=== PATIENT | female | born 1950 | race Caucasian/White ===

== ENCOUNTER → 2019-06-20 | Day surgery (SDC) | payer BC, MEDICARE ==
[~2019-06-20] MED LIST: ACETAMINOPHEN 325 MG TABLET PO PRN; ALBUTEROL SULFATE 2.5 MG/3 ML NEBU. NEB PRN; ALOG25TA PO; ASPI325T8 PO; ATROPINE 0.5 MG/5 ML DISP.SYRIN. IV PRN; CARV25TA PO; CLON-276 PO; CRESTOR40 MG PO; DOCU-109 PO; ESCITALOPRAM OX10 MG PO; IV RINGERS SOLUTION,LACTATED 1,000 ML IV SCH; LISI-334 PO; MAGN200T7 PO; METF500T16 PO; MULT-658 PO; PANT40TA3 PO; PHENOL ORAL SPRAY 177ML BOTTLE. MM PRN; POTA20PA30 PO; PROPOFOL 40 ML IV ONE; SPIR25TA5 PO; diphenhydrAMINE 50 MG/ML VIAL IV PRN
[2019-06-20 12:33] VITALS: BP 118/62
--- NOTE | 2019-06-22 16:06 | PATHOLOGY ---
[facility] Accession Number: [id number] . 01 Material submitted: . PART A: small bowel - SMALL BOWEL BX PART B: stomach - GASTRIC BX . 01 Clinical history: . Dysphagia, change in bowel . 02 Diagnosis: A. Small bowel biopsy: - No significant pathologic abnormalities. . B. Gastric biopsies: - Chronic gastritis, mild. . (JPM:mml; 06/22/2019) [facility] 06/22/2019 0936 Local . 02 Comment: Sections of the small bowel biopsy reveal duodenal mucosa. Where best oriented, the mucosal villi show no sprue-like changes or significant inflammatory changes. . Sections of the gastric antral biopsy show congestion and mild chronic inflammation. A properly-controlled immunoperoxidase stain for Helicobacter is obtained and is negative for Helicobacter organisms. . Special stain (B1): Immunoperoxidase stain for Helicobacter . (JPM:mml; 06/22/2019) . 02 Electronically signed: . Walter Jiang MD, Pathologist NPI- [id number] . 01 Gross description: . A. Received in formalin labeled "Garrett, Faby, small bowel BX, rule out celiac," is a single segment of munguia soft tissue measuring 0.5 cm in maximum dimension. The specimen is entirely submitted in cassette A1. . B. Received in formalin labeled "Garrett, Faby, gastric BX, rule out H. pylori," are 2 segments of munguia soft tissue measuring 0.7 x 0.2 x 0.2 cm in aggregate dimensions and ranging from 0.3 to 0.4 cm in maximum dimension. The specimen is submitted entirely in cassette B1. (TSD; 06/21/2019) TOB/TOB 06/21/2019 1822 Local . 02 Pathologist provided ICD-10: K29.50 . 02 CPT . 309896, [id number], [id number] Specimen Comment: A courtesy copy of this report has been sent to [phone], [phone]- Specimen Comment: [id number] Specimen Comment: Report sent to / DR SOSA Performed at: 01 [facility] [address] [facility] [address], [place] [id number] MD Kody Wade MD Phone: [phone] Performed at: 02 [facility] [address] [place], [place] [id number] MD Walter Jiang MD Phone: [phone]
== END | disposition home or self-care (01) ==
LOC: SURG 10:10
PROVIDERS: ATTEND Emergency Medicine
DX: R19.4 Change in bowel habit (principal); K63.89 Other specified diseases of intestine; R63.4 Abnormal weight loss; K22.2 Esophageal obstruction; K29.50 Unspecified chronic gastritis without bleeding; Z88.8 Allergy status to other drugs, medicaments and biological substances; Z88.6 Allergy status to analgesic agent; Z88.1 Allergy status to other antibiotic agents; Z79.82 Long term (current) use of aspirin; Z79.84 Long term (current) use of oral hypoglycemic drugs; Z79.899 Other long term (current) drug therapy; Z91.041 Radiographic dye allergy status
CPT/HCPCS: 43239; 43450; 45378; 88305; 88342; J2704; J7120

== ENCOUNTER → 2019-07-28 | Outpatient (CLI) | payer BC ==
[2019-06-20 12:33] VITALS: BP 118/62
[~2019-07-28] MED LIST changes: -ACETAMINOPHEN 325 MG TABLET PO PRN; -ALBUTEROL SULFATE 2.5 MG/3 ML NEBU. NEB PRN; -ATROPINE 0.5 MG/5 ML DISP.SYRIN. IV PRN; -IV RINGERS SOLUTION,LACTATED 1,000 ML IV SCH; -PHENOL ORAL SPRAY 177ML BOTTLE. MM PRN; -PROPOFOL 40 ML IV ONE; -diphenhydrAMINE 50 MG/ML VIAL IV PRN
--- NOTE | 2019-07-28 17:16 | RAD ---
EXAM: Chest, 2 views. HISTORY: Productive cough. COMPARISON: 03/11/2010 FINDINGS: 2 views of the chest are obtained. There is hyperinflation and hyperlucency due to emphysema. There are multiple calcified granulomas primarily within the peripheral left upper lobe. There is biapical pleural parenchymal scarring. There is a stable prominent cardiac silhouette. IMPRESSION: 1. No acute pulmonary finding. 2. Emphysema and healed granulomatous disease. Electronically signed by: Stephanie Watson MD (07/28/2019 5:13 PM) [id number]
== END | disposition home or self-care (01) ==
LOC: DXRAD 16:55
PROVIDERS: ATTEND Physician Assistant
DX: J43.9 Emphysema, unspecified (principal)
CPT/HCPCS: 71046

== ENCOUNTER → 2020-02-19 | Outpatient (CLI) | payer BC ==
[2019-06-20 12:33] VITALS: BP 118/62
--- NOTE | 2020-02-20 08:06 | RAD ---
RIBS RIGHT AND PA CHEST History: Pain Comparison: 07/28/2019 Findings: 2 PA views of the chest and 5 additional views of the right ribs are submitted. Pericardial cardiac silhouette is stable, within normal limits. There is no infiltrate, pleural fluid, or pneumothorax. Some opaque nodular opacities of the superior left hemithorax are unchanged. There is evidence for calcification of the aortic arch. There is suspected emphysema. There are minimally displaced right lateral ninth and 10th rib fractures Impression: 1. There are minimally displaced right lateral 9th and 10th rib fractures. 2. There is emphysema. 3. There is evidence of old granulomatous disease. Electronically signed by: Stuart Yoo MD (02/20/2020 8:03 AM) [id number]
== END | disposition home or self-care (01) ==
LOC: RAD 16:42
PROVIDERS: ATTEND Family Medicine
DX: S22.41XA Multiple fractures of ribs, right side, initial encounter for closed fracture (principal); X58.XXXA Exposure to other specified factors, initial encounter; Y93.89 Activity, other specified; Y92.89 Other specified places as the place of occurrence of the external cause; Y99.8 Other external cause status; J43.9 Emphysema, unspecified
CPT/HCPCS: 71101

== ENCOUNTER → 2020-02-26 | Outpatient (CLI) | payer BC ==
[2019-06-20 12:33] VITALS: BP 118/62
[2020-02-26 15:02] LABS: CALCIUM 9.6 mg/dL (8.5-10.1); CREATININE 0.8 mg/dL (0.6-1.0); GFR 71.5; MAGNESIUM 1.1 mg/dL (1.8-2.4)
== END | disposition home or self-care (01) ==
LOC: LAB 14:04
PROVIDERS: ATTEND Family Medicine
DX: E83.42 Hypomagnesemia (principal)
CPT/HCPCS: 36415; 80048; 83735

== ENCOUNTER → 2020-02-27 | Outpatient (CLI) | payer BC ==
[~2020-02-27] MED LIST changes: +MAGNESIUM SULFATE 2GM 50 ML IV ONE
[2020-02-27 11:53] VITALS: BP 138/84
--- NOTE | 2020-02-27 13:10 | NUR ---
NURSING NOTE OUTPATIENT PT AMBULATE TO ROOM 119 FOR OUTPATIENT INFUSION. PT VITALS OBTAINED. PT DIFFICULT STICK STATES SHE USUALLY HAS TO HAVE A PICC LINE FOR INFUSION. GABRIEL, [employer] INSERTED 24G IN RIGHT WRIST. INFUSION STARTED. WILL CONTINUE TO MONITOR. STEFANIE BEAULIEU.
--- NOTE | 2020-02-27 14:25 | NUR ---
NURSING NOTE OUTPATIENT PT INFUSION COMPLETE. PT IV FLUSHED WITH 10 CC NS BY STEFANIE DOHERTY. PT IV REMOVED BY BESSY WATTS. PT WHEELED OFF UNIT WITH HER WHEEL WALKER. NO COMPLICATIONS. STEFANIE BEAULIEU.
== END | disposition home or self-care (01) ==
LOC: OPINF 11:36
PROVIDERS: ATTEND Family Medicine
DX: E83.42 Hypomagnesemia (principal); J43.9 Emphysema, unspecified
CPT/HCPCS: 96365; 96366; J3475; 36592; 96367